=== PATIENT | male | born 1965 | race Hispanic/Latino ===

== ENCOUNTER 2023-08-15 07:59 | Inpatient (IN) | payer OTHER ==
[2023-08-11 15:19] VITALS: BMI 28.3
[2023-08-15] MEDS ORDERED: Mag-Al 1200 mg/1200 mg/30 ML UDCUP PO PRN (08:52)
[2023-08-15] MEDS ORDERED: diphenhydrAMINE 50 MG/ML VIAL IVP PRN (08:52)
[2023-08-15] MEDS ORDERED: Acetaminophen/Codeine 30-300mg Tablet PO PRN ×2 (08:52)
[2023-08-15] MEDS ORDERED: Acetaminophen 325 MG TAB PO PRN (08:52)
[2023-08-15] MEDS ORDERED: Ondansetron PF 4 MG/2 ML Vial IVP PRN (08:52)
[2023-08-15] MEDS ORDERED: Milk Of Magnesia 30 ML UDCUP PO PRN (08:52)
[2023-08-15] MEDS ORDERED: Cyclobenzaprine 10 MG TAB PO PRN (08:52)
[2023-08-15] MEDS ORDERED: traMADol HCl 50 MG TAB PO PRN (08:52)
[2023-08-15] MEDS ORDERED: Promethazine 25 MG TAB PO PRN (08:52)
[2023-08-15] MEDS ORDERED: Vancomycin 1 GM VIAL ONE (08:59)
[2023-08-15] MEDS ORDERED: Fentanyl 250 MCG/5 ML VIAL ONE (09:01)
[2023-08-15] MEDS ORDERED: SUGAMMADEX SODIUM 200 MG/2 ML VIAL ONE (09:01)
[2023-08-15] MEDS ORDERED: Lidocaine 1% PF 5 ML VIAL ONE ×2 (09:09→09:41)
[2023-08-15] MEDS ORDERED: PROPOFOL 20 ML ONE (09:09)
[2023-08-15] MEDS ORDERED: Rocuronium Bromide 10 MG/ML (10ML VIAL) ONE ×2 (09:09→09:41)
[2023-08-15] MEDS ORDERED: Dexamethasone 4 mg/ml Vial ONE (09:09)
[2023-08-15] MEDS ORDERED: CEFAZOLIN 2 GM VIAL ONE (09:11)
[2023-08-15] MEDS ORDERED: Sodium Chloride 0.9% 100 ML ONE (09:11)
[2023-08-15] MEDS ORDERED: Midazolam HCl 2 mg/2 ml Vial ONE (09:12)
[2023-08-15 09:21] LABS: #Basophils 0.1 thou/uL (0.0-0.2); #Eosinphils 0.2 thou/uL (0.0-0.7); #Monocytes 0.4 thou/uL (0.11-0.59); #Neutrophils 2.6 thou/uL (1.40-6.50); %Basophils 1.1 % (0.0-1.0); %Eosinophils 5.3 % (0.0-10.0); %Lymphocytes 26.8 % (21.0-51.0); %Monocytes 9.3 % (0.0-10.0); %Neutrophils 57.1 % (42.0-75.0); Hematocrit 41.9 % (42.0-52.0); Hemoglobin 14.3 g/dL (14.0-18.0); Mean Corpuscular HGB CONC 34.1 g/dL (32.0-36.0); Mean Corpuscular Volume 87.8 fl (78.0-98.0); Mean Platelet Volume 11.2 fL (7.4-10.4); Platelet Count 207 10x3/uL (130-400); RBC Distribution Width 13.7 % (11.5-14.5); Red Blood Cell (RBC) Count 4.77 mill/uL (4.70-6.10); White Blood Cell (WBC) Count 4.5 10x3/uL (4.8-10.8)
[2023-08-15] MEDS ORDERED: PROPOFOL 200 MG/20 ML VIAL ONE (09:41)
[2023-08-15] MEDS ORDERED: Ondansetron PF 4 MG/2 ML Vial ONE (09:41)
[2023-08-15] MEDS ORDERED: Dexamethasone 20 MG/5 ML VIAL ONE (09:41)
[2023-08-15 09:54] LABS: Anion Gap 14 mmol/L (10-20); BUN (Urea Nitrogen) 13 mg/dL (8.4-25.7); Calc. Creatinine Clearance 88 mL/min (70-130); Carbon Dioxide 24 mmol/L (22-29); Chloride 104 mmol/L (98-107); Estimated GFR 77; Glucose 103 mg/dL (70-105); Potassium 4.5 mmol/L (3.5-5.1); Sodium 137 mmol/L (136-145)
[2023-08-15] MEDS ORDERED: Ondansetron HCl/PF 4 MG/2 ML Vial IVP PRN (10:25)
[2023-08-15] MEDS ORDERED: HYDROmorphone 2 MG/ML VIAL SLOW IVP PRN (10:25)
[2023-08-15] MEDS ORDERED: Promethazine HCl 25 MG/ML VIAL IM PRN (10:25)
[2023-08-15] MEDS ORDERED: HYDROmorphone 0.5 MG/0.5 ML SYRINGE ONE ×3 (11:33→13:59)
[2023-08-15] MEDS ORDERED: fentaNYL 50 mcg/mL 1 mL Vial ONE ×5 (11:55→14:36)
[2023-08-15] MEDS: Sodium Chloride 0.9% 1,000 ML IV SCH ×2 (15:24→22:28)
[2023-08-15] MEDS: CEFAZOLIN 2 GM in Sodium Chloride 0.9% 100 ML IVPB SCH (16:02)
[2023-08-15] MEDS: Morphine 2 MG/ML VIAL SLOW IVP PRN ×2 (16:07→20:04)
[2023-08-15] MEDS ORDERED: CEFAZOLIN 2 GM in Sodium Chloride 0.9% 100 ML IVPB SCH (17:00)
[2023-08-16] MEDS: CEFAZOLIN 2 GM in Sodium Chloride 0.9% 100 ML IVPB SCH (00:43)
[2023-08-16] MEDS: Morphine 2 MG/ML VIAL SLOW IVP PRN ×3 (02:37→22:58)
[2023-08-16] MEDS: Sodium Chloride 0.9% 1,000 ML IV SCH (03:45)
[2023-08-16] MEDS: HYDROcodone/Acetaminophen 10/325 mg Tablet PO PRN ×4 (08:09→19:58)
[2023-08-17] MEDS: Sodium Chloride 0.9% 1,000 ML IV SCH ×2 (01:00→06:05)
[2023-08-17] MEDS: HYDROcodone/Acetaminophen 10/325 mg Tablet PO PRN ×2 (03:03→07:38)
[2023-08-17 08:24] VITALS: BP 96/61; TEMP 99.2
== END 2023-08-17 11:44 | disposition home or self-care (01) | DRG 460 ==
LOC: SDC 07:59 → T4-B 15:05 → OBSVTOIN 08-16 17:43
PROVIDERS: ADMIT Neurological Surgery; ATTEND Neurological Surgery
PROC: 0SG0071 Fusion of Lumbar Vertebral Joint with Autologous Tissue Substitute, Posterior Approach, Posterior Column, Open Approach (ICD-10-PCS; principal; 2023-08-15)
PROC: 0SG3071 Fusion of Lumbosacral Joint with Autologous Tissue Substitute, Posterior Approach, Posterior Column, Open Approach (ICD-10-PCS; 2023-08-15)
PROC: 01NR0ZZ Release Sacral Nerve, Open Approach (ICD-10-PCS; 2023-08-15)
DX: M48.061 Spinal stenosis, lumbar region without neurogenic claudication (principal); M48.07 Spinal stenosis, lumbosacral region; M54.16 Radiculopathy, lumbar region; G89.29 Other chronic pain; Z98.890 Other specified postprocedural states
CPT/HCPCS: 80048; 85025; 93005; 93010; C1713; C1889; J1100; J1170; J2250; J2272; J2405; J2704; J3010; J3370; J3490; J7050